=== PATIENT | female | born 1995 | race Caucasian/White ===

== ENCOUNTER 2019-08-30 13:47 | Inpatient (IN) | payer OTHER ==
[~2019-08-30] VITALS: Ht 170.2 cm; Wt 85.0 kg
--- NOTE | ~2019-08-30 | OR ---
[facility] [address] [place] [id number] Draft DATE OF OPERATION: 09/01/2019 SURGEON: Cheryl Pacsual DO PREOPERATIVE DIAGNOSES: 1. Term intrauterine . 2. Failure to progress. POSTOPERATIVE DIAGNOSES: 1. Term intrauterine . 2. Failure to progress. PROCEDURE PERFORMED: Primary low transverse delivery. CORRECTION OFFICER HEAD: Louise Franco MD ANESTHESIA: Spinal. ESTIMATED BLOOD LOSS: 600 mL. FINDINGS: Viable male born in the ROP position with nuchal x2. 8 pounds 8 ounces. Uterus, tubes, and ovaries normal. COMPLICATIONS: None. INDICATIONS: Ms. Long is a pleasant 24-year-old, G1, P0, white female, who presented for induction of labor. She progressed to 9.5 cm, but over an extended period of monitoring, was unable to dilate further despite adequate contractions. Decision was made to proceed with primary low transverse delivery. Risks, benefits, and alternatives were discussed in detail with the patient. The patient understands and wishes to proceed with the procedure. TECHNIQUE: PATIENT NAME: JENNIFER LONG OPERATIVE REPORT DATE OF : [birth year] REPORT #: [id number] PHYSICIAN: CHERYL PASCUAL DO PCP: CHERYL PASCUAL DO REPORT IS CONFIDENTIAL AND NOT TO BE RELEASED WITHOUT AUTHORIZATION [address] [address] Draft The patient was taken to the operating room. A time-out was performed to confirm correct patient and correct procedure. Spinal anesthesia was adequately established. The patient was prepped and draped in the supine position with a bump under her right hip. Graham catheter was inserted. ICPs were on and working. Ancef 2 g preoperatively was given, but no heparin was indicated. Once evaluating that anesthesia was adequate, a Pfannenstiel skin incision was made 2 cm above the pubic symphysis. The fascia was nicked in the midline and fascial incision was extended bilaterally using curved Powers scissors. The fascia was grasped with María's, elevated, and the underlying rectus muscles dissected off bluntly and sharply. The rectus muscles were dissected bluntly in the midline. The peritoneum was grasped with hemostats. The peritoneum was elevated and entered sharply. Peritoneal incision was extended cephalad caudad using blunt and sharp dissection. An Blane self retractor was placed after survey of the abdomen and pelvis was performed. The lower uterine segment was identified and hysterotomy was performed using a surgical scalpel. Hysterotomy was extended bilaterally using blunt dissection. Fluid was noted to be cleared. Surgeon's hand was placed in the uterine cavity. The head elevated into the maternal abdomen and delivered with the assistance of fundal pressure in the ROP position. Nuchal cord x2 was noted and reduced. The shoulders were easily delivered with the assistance of fundal pressure and the was vigorous and cried at delivery. Cord was doubly clamped and cut, and the handed to the waiting pediatric team for further care. Cord blood was obtained for routine analysis. The placenta was then expressed intact with a centrally inserted three-vessel cord. Uterine cavity was remained of any remaining products of conception or clot and noted to be firming up well with the addition of Pitocin per protocol. Hysterotomy was then repaired using 0 Vicryl in a running locked manner. A 2nd vertical imbricating suture of 0 Vicryl was applied. Some oozing was noted from the left edge of the incision and an [place] stitch was placed with careful attention to displace the ureter laterally before placing the suture. Good hemostasis was then appreciated. The pelvis was irrigated and found to be hemostatic. The Blane retractor was removed. ACell sheet was applied to the lower uterine segment and normal tubes and ovaries were identified bilaterally. The peritoneum was then reapproximated using 2-0 Vicryl in a running nonlocked manner. The rectus was examined and found to be hemostatic after judicious use of Bovie electrocautery. The rectus was then plicated loosely in the midline with three interrupted sutures of 0 Vicryl. ACell powder was then applied to the rectus sheath. Fascia was then reapproximated using 0 Vicryl in a running nonlocked manner. The subcu was examined, found to be hemostatic. Subcu was less than 2 cm and no closure was needed. Skin was then reapproximated using surgical ambrosio with good hemostasis and cosmesis. The uterus was Crede'd for a small amount of blood and the patient was taken to the PACU in good and stable condition with her infant. Sponge, needle, and instrument count was correct x2 at the end of the procedure. Dr. Franco was present and participated in all portions of procedure. PATIENT NAME: JENNIFER LONG OPERATIVE REPORT DATE OF : 95 REPORT #: [id number] PHYSICIAN: CHERYL PASCUAL DO PCP: CHERYL PASCUAL DO REPORT IS CONFIDENTIAL AND NOT TO BE RELEASED WITHOUT AUTHORIZATION [address] [address] Draft Cheryl Pascual DO JDW/MODL /[id number] Copies: ~ PATIENT NAME: JENNIFER LONG NEEMA OPERATIVE REPORT DATE OF : 95 REPORT #: [id number] PHYSICIAN: CHERYL PASCUAL DO PCP: CHERYL PASCUAL DO REPORT IS CONFIDENTIAL AND NOT TO BE RELEASED WITHOUT AUTHORIZATION
--- NOTE | 2019-08-31 15:59 | PR ---
[facility] [address] [place], [place] [address] Signed Progress Notes IP Datetime Report Generated by RACHAEL: 08/31/2019 15:58 PROGRESS NOTES: [id number] Impression: Reassuring heart rate Procedures: Sterile Vag Exam; Ultrasound Other Procedures: Limited bedside US confirms cephalic Plan: Continue present management; Cervical Ripening VITAL SIGNS: [id number] Vital Signs: Reviewed; Within Normal Limits EXAM: [id number] Dilatation: 1.0 Effacement: 70 Station: -3 MEMBRANES: [id number] Comments: Pt seen and examined. Doing well. S/P 4th dose cytotec and nearly due for next dose. Bedside US confirms cephalic position. Cx now 1 / 70 / -3 but extremely posterior. Will continue w/ prostaglandin. Consider Cook cath if unfavorable over next several exams. Reviewed plan of care w/ pt and partner. All questions answered Fetus A: [id number] FHR Baseline: 130 Variability: Minimal - Undetectable to <5bpm Accelerations: None Decelerations: None FHR Category: Category II Presentation: Vertex Comments on Fetus A: No evidence of metabolic acidosis Fetus B: [id number] Signing Physician: Cheryl Pascual DO Copies: ~ *Electronically Signed* 08/31/19 1552 CHERYL PASCUAL DO PATIENT NAME: JENNIFER MURPHY PROGRESS NOTE DATE OF : 95 PHYSICIAN: CHERYL PASCUAL DO RPT #: [id number] REPORT IS CONFIDENTIAL AND NOT TO BE RELEASED WITHOUT AUTHORIZATION
--- NOTE | 2019-08-31 19:06 | PR ---
[facility] [address] [facility] [place], [place] [address] Signed Progress Notes IP Datetime Report Generated by CPN: 08/31/2019 19:06 PROGRESS NOTES: [id number] Impression: Reassuring heart rate Procedures: Sterile Vag Exam Other Procedures: Limited bedside US confirms cephalic Plan: Continue present management VITAL SIGNS: [id number] Vital Signs: Reviewed; Within Normal Limits EXAM: [id number] Dilatation: 1.5 Effacement: 80 Station: -3 MEMBRANES: [id number] Comments: Pt seen and evaluated. Doing well. Occasional mild contractions. Cx now 1.5 / 80 -3 posterior moderate. Will continue cervical ripening. Plan AROM or Cook cath after next dose of cytotec. Reviewed plan of care w/ pt, family, and RN. All questions answered. Fetus A: [id number] FHR Baseline: 130 Variability: Moderate 6-25bpm Accelerations: None Decelerations: None FHR Category: Category I Presentation: Vertex Comments on Fetus A: No evidence of metabolic acidosis Fetus B: [id number] Signing Physician: Cheryl Pascual DO Copies: ~ *Electronically Signed* 08/31/19 190 CHERYL PASCUAL DO PATIENT NAME: JENNIFER MURPHY PROGRESS NOTE DATE OF : 95 PHYSICIAN: CHERYL PASCUAL DO RPT #: [id number] REPORT IS CONFIDENTIAL AND NOT TO BE RELEASED WITHOUT AUTHORIZATION
--- NOTE | 2019-08-31 23:56 | PR ---
[facility] [address] [place], [place] [address] Signed Progress Notes IP Datetime Report Generated by RACHAEL: 08/31/2019 23:56 PROGRESS NOTES: [id number] Impression: Normal progression of labor; Reassuring heart rate Procedures: Artificial ROM Other Procedures: Limited bedside US confirms cephalic Plan: Anticipate Vaginal Delivery Other Plans: Consider amnioinfusion VITAL SIGNS: [id number] Vital Signs: Reviewed; Within Normal Limits EXAM: [id number] Dilatation: 7.0 Effacement: 100 Station: -1 Uterine Contractions: Difficult to evaluate w/ external tocometer MEMBRANES: [id number] ROM Note: Vertex noted to be well applied to cervix. Discussed AROM and pt gives verbal consent. AROM performed without difficulty for moderate amount clear fluid. Comments: Pt seen and examined. Uncomfortable with contractions and noted to be 3cm. Anesthesia notified and epidural was placed without difficulty with good pain relief. Discussed AROM and internal monitors. Pt understood and agreed. Pt noted to be 7 / 100. AROM performed without difficulty for moderate amount clear fluid. IUPC and FSE placed. No cord prolapse or other abnormalities noted. Deep variable with next contraction. Will monitor closely and consider amnioinfusion if needed. Fetus A: [id number] FHR Baseline: 145 Variability: Moderate 6-25bpm Accelerations: None Decelerations: Late; Variable FHR Category: Category II Presentation: Vertex Comments on Fetus A: Moderate variability and acceleration w/ scalp stim reassuring, variable following AROM Fetus B: [id number] Signing Physician: Cheryl Pascual DO Copies: *Electronically Signed* 08/31/19 [facility] PASCUAL,CHERYL Resendez DO PATIENT NAME: JENNIFER MURPHY PROGRESS NOTE DATE OF : 95 PHYSICIAN: CHERYL PASCUAL DO RPT #: [id number] REPORT IS CONFIDENTIAL AND NOT TO BE RELEASED WITHOUT AUTHORIZATION [address] [place] [address] Signed ~ *Electronically Signed* 08/31/192355 PASCUAL,CHERYL Resendez DO PATIENT NAME: JENNIFER MURPHY PROGRESS NOTE DATE OF : 95 PHYSICIAN: CHERYL PASCUAL DO RPT #: [id number] REPORT IS CONFIDENTIAL AND NOT TO BE RELEASED WITHOUT AUTHORIZATION
--- NOTE | 2019-09-01 04:43 | PR ---
[facility] [address] [place], [place] [address] Signed Progress Notes IP Datetime Report Generated by RACHAEL: 09/01/2019 04:43 PROGRESS NOTES: [id number] Impression: Arrest of dilatation/descent; Non-reassuring heart rate Procedures: Sterile Vag Exam Other Procedures: Limited bedside US confirms cephalic Plan: Deliver- Section Other Plans: Consider amnioinfusion Informed Consent Obtain: Section Delivery; Risks, Benefits and Alternatives Discussed VITAL SIGNS: [id number] Vital Signs: Reviewed VS Notable Details: Last systolic elevated EXAM: [id number] Dilatation: 9.5 Effacement: 95 Station: -2 Uterine Contractions: Irregular MEMBRANES: [id number] ROM Note: Vertex noted to be well applied to cervix. Discussed AROM and pt gives verbal consent. AROM performed without difficulty for moderate amount clear fluid. Comments: Pt seen and examined. vertex well applied but station remains high despite augmentation. Acceleration noted with sterile vaginal exam with is reassuring, however with suspected macrosomia and now arrest of dilation with variable decelerations, I recommended primary LTCS. Pt understands and agrees. Reviewed risks and benefits of delivery with including infection, bleeding, injury to surrounding GI/ structures, and risks of future pregnancies. Pt understands and agrees. Pit stopped. OR crew and Dr. Franco notified and en route. Consents signed. All questions answered to best of my ability and to patient's apparent satisfaction. Fetus A: [id number] FHR Baseline: 150 Variability: Minimal - Undetectable to <5bpm Accelerations: 15X15 Decelerations: Late; Variable FHR Category: Category II Presentation: Vertex Comments on Fetus A: Cat II tracing. Accel w/ scalp stim reassuring Fetus B: [id number] *Electronically Signed* 09/01/19442 CHERYL PASCUAL DO PATIENT NAME: JENNIFER MURPHY PROGRESS NOTE DATE OF : 95 PHYSICIAN: CHERYL PASCUAL DO RPT #: [id number] REPORT IS CONFIDENTIAL AND NOT TO BE RELEASED WITHOUT AUTHORIZATION [address] [place] [address] Signed Signing Physician: Cheryl Pascual DO Copies: ~ *Electronically Signed* 09/01/19442 CHERYL PASCUAL DO PATIENT NAME: JENNIFER MURPHY PROGRESS NOTE DATE OF : 95 PHYSICIAN: CHERYL PASCUAL DO RPT #: [id number] REPORT IS CONFIDENTIAL AND NOT TO BE RELEASED WITHOUT AUTHORIZATION
--- NOTE | 2019-09-01 06:39 | NUR ---
09/01/19 0639 Eli Sewell 0610 PATIENT TO ROOM, PROVIDED WARM BLANKETS. FATHER AT BEDSIDE WITH BABY. PATIENT RATING PAIN 7/10 ON PAIN SCALE. 0615 PATIENT AWAKE AND TALKING TO SIGNIFICANT OTHER. SMALL AMOUNT OF RED DISCHARGE TO MARTIN PAD. 0630 BABY TO BREAST, PATIENT AWAKE AND VERBALIZING PAIN 7/10 AT SURGICAL SITE. FUNDUS 3 BELOW UNBILICUS, MID AND FIRM. SMALL AMOUNT OF RED DISCHARGE TO MARTIN PAD. ELDER DRAINING YELLOW URINE.
--- NOTE | 2019-09-02 09:36 | PR ---
[facility] [address] [facility] [place], [place] [address] Signed PP Progress Notes Datetime Report Generated by CPN: 09/02/2019 09:36 SUBJECTIVE: [id number] Pain: Within normal limits Nausea/Vomiting: Denies Flatus: Yes Bowel Movement: No Vital Signs: [id number] Vital Signs: Reviewed; Within Normal Limits EXAM: [id number] Cardiovascular: Normal Respiratory: Normal Abdomen/Uterus: Normal Lochia: Normal Vulva/Perineum: Not Done Breasts: Not Done CVA Tenderness: Normal Extremities: Normal Incision: Normal Progress: Normal Exam Comments: Fundus Firm U-2 nontender IMPRESSION/PLAN/PROCEDURES: [id number] Impression: Normal progression Plan: Continue present management Progress Notes: Pt seen and examined. Doing well. Tolerating full diet and has ambulated some. Fagan cath still in place. Pain well controlled with multimodal pain treatment and pt has avoided opioids. Lochia minimal. well. No concerns. Will ambulate and d/c fagan. Anticipate d/c home POD 2-3. Signing Physician: Cheryl Pascual DO Copies: ~ *Electronically Signed* 09/02/19 0936 CHERYL PASCUAL DO PATIENT NAME: JENNIFER MURPHY PROGRESS NOTE DATE OF : 95 PHYSICIAN: CHERYL PASCUAL DO RPT #: [id number] REPORT IS CONFIDENTIAL AND NOT TO BE RELEASED WITHOUT AUTHORIZATION
[2019-09-02] MEDS ORDERED: BUPRENORPHINE HC8 MG SL (13:09)
--- NOTE | 2019-09-03 09:07 | PR ---
[facility] [address] [place], [place] [address] Signed PP Progress Notes Datetime Report Generated by CPN: 09/03/2019 09:07 SUBJECTIVE: [id number] Pain: Within normal limits Nausea/Vomiting: Denies Flatus: Yes Bowel Movement: Yes Vital Signs: [id number] Vital Signs: Reviewed; Within Normal Limits EXAM: [id number] Cardiovascular: Normal Respiratory: Normal Abdomen/Uterus: Normal Lochia: Normal Vulva/Perineum: Not Done Breasts: Not Done CVA Tenderness: Normal Extremities: Normal Incision: Normal Progress: Normal Exam Comments: Fundus firm U-2 nontender. Incision well healing IMPRESSION/PLAN/PROCEDURES: [id number] Impression: Normal progression; difficulties Plan: Continue present management Progress Notes: Pt seen and examined. Doing well. Ambulating, voiding, and tolerating full diet. Pain and lochia minimal. with some difficulty and working with RN on skills. Pain well controlled w/ opioid free regimen. Anticipate d/c home tomorrow. All questions answered Signing Physician: Cheryl Pascual DO Copies: ~ *Electronically Signed* 09/03/19906 CHERYL PASCUAL DO PATIENT NAME: JENNIFER MURPHY PROGRESS NOTE DATE OF : 95 PHYSICIAN: CHERYL PASCUAL DO RPT #: [id number] REPORT IS CONFIDENTIAL AND NOT TO BE RELEASED WITHOUT AUTHORIZATION
--- NOTE | 2019-09-04 10:20 | PR ---
[facility] [address] [facility] [place], [place] [address] Signed PP Progress Notes Datetime Report Generated by CPN: 09/04/2019 10:20 SUBJECTIVE: [id number] Pain: Within normal limits Nausea/Vomiting: Denies Flatus: Yes Bowel Movement: Yes Vital Signs: [id number] Vital Signs: Reviewed; Within Normal Limits EXAM: [id number] Cardiovascular: Normal Respiratory: Normal Abdomen/Uterus: Normal Lochia: Normal Vulva/Perineum: Not Done Breasts: Not Done CVA Tenderness: Normal Extremities: Normal Incision: Normal Progress: Normal Exam Comments: Fundus firm U-2 nontender IMPRESSION/PLAN/PROCEDURES: [id number] Impression: Normal progression Plan: Remove ambrosio; Discharge Progress Notes: Pt seen and examined. Doing well. Ambulating voiding and tolerating full diet. Pain well controlled w/ opioid free regimen and pt declines opioids on discharge. Lochia minimal. much improved. no other concerns. D/C Home. Desires immunizations as outpatient. Baby Rh neg and rhogam not indicated. Signing Physician: Cheryl Pascual DO Copies: ~ *Electronically Signed* 09/04/19 1020 CHERYL PASCUAL DO PATIENT NAME: JENNIFER MURPHY PROGRESS NOTE DATE OF : 95 PHYSICIAN: CHERYL PASCUAL DO RPT #: [id number] REPORT IS CONFIDENTIAL AND NOT TO BE RELEASED WITHOUT AUTHORIZATION
== END 2019-09-04 11:45 | disposition home or self-care (01) | DRG 787 ==
LOC: FBC 08-31 00:03 → INFT 08-31 13:32 → FBC 09-04 11:45
PROVIDERS: ADMIT Obstetrics & Gynecology
PROC: 10907ZC Drainage of Amniotic Fluid, Therapeutic from Products of Conception, Via Natural or Artificial Opening (ICD-10-PCS; 2019-08-31)
PROC: 10H07YZ Insertion of Other Device into Products of Conception, Via Natural or Artificial Opening (ICD-10-PCS; 2019-08-31)
PROC: 3E0P7VZ Introduction of Hormone into Female Reproductive, Via Natural or Artificial Opening (ICD-10-PCS; 2019-08-31)
PROC: 00HU33Z Insertion of Infusion Device into Spinal Canal, Percutaneous Approach (ICD-10-PCS; 2019-08-31)
PROC: 3E0R3BZ Introduction of Anesthetic Agent into Spinal Canal, Percutaneous Approach (ICD-10-PCS; 2019-08-31)
PROC: 10D00Z1 Extraction of Products of Conception, Low, Open Approach (ICD-10-PCS; principal; 2019-09-01 05:20)
DX: O99.324 Drug use complicating childbirth (principal); O63.9 Long labor, unspecified; F11.11 Opioid abuse, in remission; Z3A.40 40 weeks gestation of pregnancy; Z37.0 Single live birth; O76 Abnormality in fetal heart rate and rhythm complicating labor and delivery; O99.02 Anemia complicating childbirth; D64.9 Anemia, unspecified; O62.1 Secondary uterine inertia; O32.4XX0 Maternal care for high head at term, not applicable or unspecified; O69.1XX0 Labor and delivery complicated by cord around neck, with compression, not applicable or unspecified; Z87.891 Personal history of nicotine dependence
CPT/HCPCS: 01961; 36415; 82803; 85027; J0131; J0690; J1170; J1885; J2001; J2274; J2405; J2550; J2590; J2795

== ENCOUNTER 2025-03-15 18:29 | Inpatient (IN) | payer OTHER ==
[~2025-03-15 18:29] MED LIST: BUPRENORPHINE HC8 MG SL
[2025-04-06] MEDS ORDERED: CEFAZOLIN SODIUM 2 GM in SODIUM CHLORIDE 0.9% 100 ML IV SCH (07:00)
[2025-04-06 10:29] VITALS: BP 106/61
[2025-04-06] MEDS ORDERED: LACTATED RINGER'S 1,000 ML IV PRN (11:00)
[2025-04-06] MEDS ORDERED: LIDOCAINE 2% VISCOUS 6 ML SYR TOP ONE (11:00)
[2025-04-06] MEDS ORDERED: SOD+POT BICARB/CITRIC ACID 2 EA TABLET.EFF PO ONE (11:00)
[2025-04-06 11:04] LABS: MCH 30.0 PG (25.6-32.2); MCHC 33.3 g/dL (32.2-35.5); MCV 89.9 fL (79.4-94.8); RBC 3.47 M/uL (3.93-5.22)
[2025-04-06] MEDS ORDERED: fentaNYL citrate 100 MCG/2 ML VIAL ONE (11:21)
[2025-04-06] MEDS ORDERED: MORPHINE SULFATE 1 MG/ML VIAL ONE (11:21)
[2025-04-06 11:28] LABS: AMPHETAMINES, URINE NEGATIVE (NEGATIVE); BARBITURATES, URINE NEGATIVE (NEGATIVE); BENZODIAZEPINE, URINE NEGATIVE (NEGATIVE); CANNABINOID, URINE NEGATIVE (NEGATIVE); COCAINE, URINE NEGATIVE (NEGATIVE); ECSTASY, URINE NEGATIVE (NEGATIVE); FENTANYL, URINE NEGATIVE (NEGATIVE); METHADONE, URINE NEGATIVE (NEGATIVE); OPIATES, URINE NEGATIVE (NEGATIVE); OXYCODONE, URINE NEGATIVE (NEGATIVE); PHENCYCLIDINE, URINE NEGATIVE (NEGATIVE)
[2025-04-06 11:35] LABS: ABO A; ANTIBODY SCREEN NEGATIVE; RH NEGATIVE
[2025-04-06] MEDS ORDERED: OXYTOCIN 10 UNITS/ML VIAL ONE (12:24)
[2025-04-06] MEDS ORDERED: LIDOCAINE HCL 2% 5 ML SDV ONE (12:24)
[2025-04-06] MEDS ORDERED: Ropivacaine HCl 0.5% 30 ML VIAL ONE (12:24)
[2025-04-06] MEDS ORDERED: SODIUM CHLORIDE 0.9% 40 ML IV ONE (12:24)
[2025-04-06] MEDS ORDERED: BUPIVACAINE 0.75% IN DEXTROSE 2 ML AMP ONE (12:24)
[2025-04-06] MEDS ORDERED: LACTATED RINGER'S 1,000 ML IV SCH (13:12)
[2025-04-06] MEDS ORDERED: PROMETHAZINE HCL 25 MG TAB PO PRN (13:15)
[2025-04-06] MEDS ORDERED: METOCLOPRAMIDE HCL 10 MG/2 ML SDV IV PRN (13:15)
[2025-04-06] MEDS ORDERED: OXYCODONE/APAP 5/325 TAB PO PRN (13:15)
[2025-04-06] MEDS ORDERED: PROCHLORPERAZINE EDISYLATE 10 MG/2 ML VIAL IV PRN (13:15)
[2025-04-06] MEDS ORDERED: PROMETHAZINE HCL 25 MG SUPP PR PRN (13:15)
[2025-04-06] MEDS ORDERED: OXYTOCIN/0.9 % SODIUM CHLORIDE 500 ML IV SCH (13:15)
[2025-04-06] MEDS ORDERED: OXYCODONE HCL 5 MG TAB PO PRN (13:15)
[2025-04-06] MEDS ORDERED: HYDROCODONE/ACETA 5/325 TAB PO PRN (13:15)
--- NOTE | 2025-04-06 13:26 | NUR ---
04/06/25 1326 Dede David I ASSIST HIRAL SEAMONS WITH TAP BLOCKS, BILATERALLY, USING ULTRASOUND. PATIENT TOLERATES THIS WELL.
[2025-04-06 13:37] VITALS: BP 113/62
[2025-04-06] MEDS ORDERED: KETOROLAC TROMETHAMINE 30 MG/ML VIAL IV SCH ×2 (14:00→20:00)
[2025-04-06] MEDS ORDERED: SIMETHICONE 80 MG CHEW PO SCH (16:00)
[2025-04-06] MEDS ORDERED: FERROUS SULFATE 325 MG TAB PO SCH (17:00)
[2025-04-06] MEDS ORDERED: SENNOSIDES/DOCUSATE 1 EA TAB PO SCH (21:00)
[2025-04-07] MEDS ORDERED: LACTATED RINGER'S 1,000 ML IV SCH (05:00)
[2025-04-07 05:35] LABS: MCH 30.1 PG (25.6-32.2); MCHC 33.7 g/dL (32.2-35.5); MCV 89.4 fL (79.4-94.8); RBC 3.12 M/uL (3.93-5.22)
[2025-04-07 06:53] LABS: ABO A; ANTIBODY SCREEN NEGATIVE; RH NEGATIVE; RHIG DOSE 1; RHIG STATUS CANDIDATE
[2025-04-07 06:54] LABS: FETAL HEMOGLOBIN SCREEN NEGATIVE
--- NOTE | 2025-04-07 08:04 | PR ---
[facility] [address] [facility] [place], [place] [address] Signed PP Progress Notes Datetime Report Generated by CPN: 04/07/2025 08:04 SUBJECTIVE: [id number] Pain: Within Normal Limits Nausea/Vomiting: Denies Flatus: Yes Bowel Movement: No Vital Signs: [id number] Vital Signs: Reviewed; Within Normal Limits Cardiovascular: Normal Respiratory: Normal Abdomen/Uterus: Normal Lochia: Normal Vulva/Perineum: Not Done Breasts: Not Done CVA Tenderness: Normal Extremities: Normal Incision: Normal Progress: Normal Exam Comments: Fundus firm U-2 nontender. Incision bandaged and clean / dry. IMPRESSION/PLAN/PROCEDURES: [id number] Impression: Normal Progression Progress Notes: Pt seen and examined. Doing well. Ambulating and tolerating full diet. Pain and lochia minimal. . No concerns. Hgb 9.4. Plan MMR and Rhogam today. Start abdominal binder. D/C fagan cath and ambulate. Pain control per plan. Anticipate d/c home tomorrow. Signing Physician: Cheryl Pascual DO Copies: ~ *Electronically Signed* 04/07/25 0804 CHERYL PASCUAL (ANDI) DO PATIENT NAME: JENNIFER MURPHY PROGRESS NOTE DATE OF : 95 PHYSICIAN: CHERYL PASCUAL (JD) DO RPT #: [id number] REPORT IS CONFIDENTIAL AND NOT TO BE RELEASED WITHOUT AUTHORIZATION
[2025-04-07] MEDS ORDERED: ENOXAPARIN SODIUM 40 MG/0.4 ML SYR SUB-Q SCH (09:00)
[2025-04-07] MEDS ORDERED: IBUPROFEN 600 MG TAB PO SCH (14:00)
--- NOTE | 2025-04-10 09:40 | OR ---
[facility] [address] [place] [address] Signed DATE OF OPERATION: 04/06/2025 SURGEON: Cheryl Pascual DO PREOPERATIVE DIAGNOSES: 1. Term . 2. History of prior section. POSTOPERATIVE DIAGNOSES: 1. Term . 2. History of prior section. PROCEDURE PERFORMED: Repeat low transverse section. FILTER PRESS TENDER HEAD: BAND EDGER. ANESTHESIA: Spinal with postoperative TAP blocks. QUANTITATIVE BLOOD LOSS: 533 mL. COMPLICATIONS: None. DRAINS: Graham to gravity. SPECIMENS: Cord blood for routine analysis. FINDINGS: Delivery of viable female in the LOT position, weighing 8 pounds 3 ounces with Apgars of 8 and 9. No nuchal cord. Clear fluid. Normal uterus, tubes, and ovaries. INDICATIONS: Ms. Long is a very pleasant 30-year-old female with a term with history of prior . She presents for repeat delivery. Risks, benefits, and Electronically Signed By: CHERYL PASCUAL DO (JD) 04/10/25 0940 PATIENT NAME: JENNIFER LONG OPERATIVE REPORT DATE OF : 95 REPORT #: [id number] PHYSICIAN: CHERYL PASCUAL) PCP: CHERYL PASCUAL) REPORT IS CONFIDENTIAL AND NOT TO BE RELEASED WITHOUT AUTHORIZATION [address] [address] Signed alternatives were discussed in detail with the patient. The patient understands and wished to proceed with the procedure. DESCRIPTION OF PROCEDURE: The patient was taken to the OR where a time-out was performed to confirm correct patient and correct procedure. Spinal anesthesia was adequately established. The patient was prepped and draped in the supine position with a bump under the right hip. A Graham catheter was inserted. Once neural axial anesthesia was noted to be adequate, a Pfannenstiel skin incision was made through the prior incision and carried down to the fascia. The fascia was nicked in the midline and fascial incision was extended bilaterally using curved Powers scissors. Fascia was grasped with María's, elevated, and the underlying rectus dissected off bluntly and sharply. The rectus was then divided in the midline with blunt dissection. The peritoneum was entered bluntly. Peritoneal incision was extended cephalad and caudad using combination of sharp and blunt dissection. No abdominal wall or pelvic/abdominal adhesions were appreciated. The lower uterine segment identified and Blane self retractor was placed. Lower segment was evaluated and hysterotomy was performed using a surgical scalpel. Hysterotomy was extended bilaterally using blunt dissection. Amnion was ruptured for clear fluid. Surgeon's hand was placed in the uterine cavity. The vertex delivered into the maternal abdomen without difficulty and the remainder of the were delivered with the assistance of fundal pressure in the LOT position. was vigorous and cried. No nuchal and clear fluid were again appreciated. The cord was doubly clamped and cut. The handed to the waiting pediatric team after delayed cord clamping. Cord blood was obtained for routine analysis. The placenta was expressed, intact with a centrally inserted three-vessel cord. Bleeding was minimal. Pitocin was administered per protocol. Hysterotomy was repaired in two layers of 0 Monocryl, the first being a running locked layer and the second being a running imbricated layer in the vertical manner. The pelvis was cleared of any remaining clot, and normal tubes and ovaries were appreciated. The Blane self retractor was removed. The peritoneum was reapproximated using 2-0 Vicryl in a running nonlocked manner. The rectus was made hemostatic with judicious use of Bovie electrocautery. It was plicated loosely in the midline with four interrupted sutures of 0 Vicryl. The fascia was reapproximated using 0 Vicryl in a running nonlocked manner. The patient had a very thin layer of subcutaneous adipose tissue that did not require reapproximation. Subcu was made hemostatic with Bovie electrocautery and then the incision was closed with surgical ambrosio. The uterus was Crede'd for scant amount of blood and the patient remained in the OR for postoperative TAP blocks per Anesthesia. Sponge, needle, and instrument count was correct x2 at the end of the procedure. Electronically Signed By: CHERYL PASCUAL DO (JD) 04/10/25 0940 PATIENT NAME: JENNIFER LONG OPERATIVE REPORT DATE OF : 95 REPORT #: [id number] PHYSICIAN: CHERYL PASCUAL) PCP: CHERYL PASCUAL) REPORT IS CONFIDENTIAL AND NOT TO BE RELEASED WITHOUT AUTHORIZATION [address] [address] Signed Cheryl Pascual DO JDW/MODL /[id number] Copies: ~ Electronically Signed By: CHERYL PASCUAL DO (JD) 04/10/25 0940 PATIENT NAME: JENNIFER LONG OPERATIVE REPORT DATE OF : 95 REPORT #: [id number] PHYSICIAN: CHERYL PASCUAL (ANDI) PCP: CHERYL PASCUAL) REPORT IS CONFIDENTIAL AND NOT TO BE RELEASED WITHOUT AUTHORIZATION
== END 2025-04-08 12:00 | disposition home or self-care (01) | DRG 787 ==
LOC: FBC 04-06 10:07
PROVIDERS: ADMIT Obstetrics & Gynecology; ATTEND Obstetrics & Gynecology
PROC: 10D00Z1 Extraction of Products of Conception, Low, Open Approach (ICD-10-PCS; principal; 2025-04-08)
DX: O34.211 Maternal care for low transverse scar from previous cesarean delivery (principal); F11.20 Opioid dependence, uncomplicated; O99.324 Drug use complicating childbirth; O99.02 Anemia complicating childbirth; O26.893 Other specified pregnancy related conditions, third trimester; Z67.41 Type O blood, Rh negative; Z37.0 Single live birth; Z3A.39 39 weeks gestation of pregnancy; Z87.891 Personal history of nicotine dependence
CPT/HCPCS: 01961; 36415; 64488; 76942; 80307; 83030; 85027; 86850; 86900; 86901; A9270; J0688; J1650; J1885; J2003; J2274; J2405; J2590; J2790; J2795; J3010